=== PATIENT | female | born 1960 | race Two or more races ===

== ENCOUNTER 2019-06-28 14:50 | Emergency (ER) | payer OTHER ==
[~2019-06-28] VITALS: Ht 154.9 cm; Wt 74.8 kg
== END 2019-06-28 19:30 | disposition left against medical advice (07) ==
LOC: ER 14:50
DX: Z53.21 Procedure and treatment not carried out due to patient leaving prior to being seen by health care provider (principal)
CPT/HCPCS: 71046; 99284-25

== ENCOUNTER 2020-12-08 12:27 | Inpatient (IN) | payer BC ==
[~2020-12-08] VITALS: Ht 160 cm; Wt 83.7 kg
[~2020-12-08 12:27] MED LIST: BENZ100A PO
[2020-12-08 14:15] LABS: BASOPHILS ABSOLUTE AUTO 0.02 K/mm3 (0.00-0.23); BASOPHILS PERCENT AUTO 0 % (0-2); EOSINOPHILS ABSOLUTE AUTO 0.04 K/mm3 (0.00-0.68); EOSINOPHILS PERCENT AUTO 1 % (0-6); Hematocrit 44.5 % (33.0-51.0); Hemoglobin 14.5 g/dL (11.5-16.0); IMMATURE GRAN ABSOLUTE AUTO 0.03 K/mm3 (0.00-0.10); IMMATURE GRAN PERCENT AUTO 0 % (0-1); LYMPHOCYTES ABSOLUTE AUTO 0.67 K/mm3 (0.84-5.20); LYMPHOCYTES PERCENT AUTO 9 % (21-46); MONOCYTES PERCENT AUTO 3 % (4-13); Mean Corpuscular HGB Conc 32.6 g/dL (31.5-36.5); Mean Corpuscular Volume 86 fL (80-100); Mean Platelet Volume 9.8 fL (9.1-12.4); NEUTROPHILS ABSOLUTE AUTO 6.37 K/mm3 (1.96-9.15); NEUTROPHILS PERCENT AUTO 87 % (41-73); Platelet Count 327 K/mm3 (150-400); RDW Coefficient Variation 12.6 % (11.7-14.2); RDW Standard Deviation 39.8 fL (35.1-46.3); Red Blood Cell Count 5.18 M/mm3 (3.80-5.20); White Blood Cell Count 7.33 K/mm3 (4.00-11.30)
[2020-12-08 14:50] LABS: Alanine Aminotransfer (ALT/SGP 34 U/L (12-78); Albumin, Blood 2.8 g/dL (3.4-5.0); Albumin/Globulin Ratio 0.5 (0.8-1.8); Alk Phos 61 U/L (50-136); Anion Gap 6 mmol/L (6-16); Aspartate Aminotrans (AST/SGOT 46 U/L (12-37); Bilirubin, Total 0.5 mg/dL (0.1-1.0); Blood Urea Nitrogen 19 mg/dL (8-24); Bun/Creatinine Ratio 26.8 (12.0-20.0); CO2, Blood 27 mmol/L (21-32); Calcium, Blood 8.7 mg/dL (8.5-10.1); Chloride, Blood 100 mmol/L (98-108); Creatinine, Blood 0.71 mg/dL (0.40-1.00); Globulin, Blood 5.1 g/dL (2.2-4.0); Glomerular Filtration Rate >60 (60-); Glucose, Blood 113 mg/dL (70-99); Sodium, Blood 133 mmol/L (136-145); Total Protein, Blood 7.9 g/dL (6.4-8.2)
[2020-12-08] MEDS ORDERED: ALBU2.5V5 NEB (16:28)
[2020-12-08] MEDS ORDERED: AZIT250 PO (16:29)
[2020-12-08] MEDS ORDERED: CEFDINIR300 M4 PO (16:29)
--- NOTE | 2020-12-08 18:06 | NUR ---
SUMMARY PT ADMITTED FROM THE ER, PT ABLE TO STAND AND TRANSFER FROM THE GURNEY TO THE BED WITH MIN ASSIST, ORIENTED PT TO THE ROOM AND CALL SYSTEM, NO COMPLAINTS, WILL CONTINUE TO MONITOR
--- NOTE | 2020-12-09 04:47 | NUR ---
SHIFT SUMMARY: LS VERY COURSE T/O MOIST COUGH, NON-PRODUCTIVE. SOB WITH EXERTION. HACKING COUGH AT TIMES. WEAK, BUT ABLE TO GET UP TO BSC, BUT IT WEARS HER OUT AFTER DOING SO. DENIES ANY PAIN. VS ARE STABLE, MILD FEVERS. CHILLS. TASTE IS NORMAL. NO BM TONIGHT. VOIDING WELL. FAIR APPETITE. SATS GOOD ON 2 LITERS. HAS BEEN SLEEPING ENTIRE SHIFT EXCEPT TO USE THE BATHROOM. WILL CONTINUE TO MONITOR. CALL LIGHT IN REACH.
[2020-12-09 06:06] LABS: BASOPHILS ABSOLUTE AUTO 0.01 K/mm3 (0.00-0.23); BASOPHILS PERCENT AUTO 0 % (0-2); EOSINOPHILS ABSOLUTE AUTO 0.03 K/mm3 (0.00-0.68); EOSINOPHILS PERCENT AUTO 1 % (0-6); Hematocrit 39.6 % (33.0-51.0); Mean Corpuscular HGB 28.1 pg (26.0-34.0); Mean Corpuscular HGB Conc 32.8 g/dL (31.5-36.5); Mean Corpuscular Volume 86 fL (80-100); Mean Platelet Volume 9.7 fL (9.1-12.4); Platelet Count 326 K/mm3 (150-400); RDW Coefficient Variation 12.6 % (11.7-14.2); RDW Standard Deviation 38.8 fL (35.1-46.3); Red Blood Cell Count 4.63 M/mm3 (3.80-5.20); White Blood Cell Count 5.61 K/mm3 (4.00-11.30)
[2020-12-09 06:25] LABS: Alanine Aminotransfer (ALT/SGP 26 U/L (12-78); Albumin, Blood 2.3 g/dL (3.4-5.0); Albumin/Globulin Ratio 0.5 (0.8-1.8); Alk Phos 51 U/L (50-136); Anion Gap 7 mmol/L (6-16); Aspartate Aminotrans (AST/SGOT 40 U/L (12-37); Bilirubin, Total 0.4 mg/dL (0.1-1.0); Blood Urea Nitrogen 14 mg/dL (8-24); Bun/Creatinine Ratio 22.7 (12.0-20.0); CO2, Blood 25 mmol/L (21-32); Chloride, Blood 103 mmol/L (98-108); Creatinine, Blood 0.62 mg/dL (0.40-1.00); Globulin, Blood 4.3 g/dL (2.2-4.0); Glomerular Filtration Rate >60 (60-); Glucose, Blood 103 mg/dL (70-99); Potassium, Blood 3.8 mmol/L (3.5-5.5); Sodium, Blood 135 mmol/L (136-145); Total Protein, Blood 6.6 g/dL (6.4-8.2)
[2020-12-09 06:34] LABS: IMMATURE GRAN ABSOLUTE AUTO 0.03 K/mm3 (0.00-0.10); IMMATURE GRAN PERCENT AUTO 1 % (0-1); LYMPHOCYTES ABSOLUTE AUTO 0.58 K/mm3 (0.84-5.20); LYMPHOCYTES PERCENT AUTO 10 % (21-46); MONOCYTES ABSOLUTE AUTO 0.21 K/mm3 (0.16-1.47); MONOCYTES PERCENT AUTO 4 % (4-13); NEUTROPHILS ABSOLUTE AUTO 4.75 K/mm3 (1.96-9.15); NEUTROPHILS PERCENT AUTO 85 % (41-73)
--- NOTE | 2020-12-09 18:31 | NUR ---
SHIFT... PT REMAINS ALERT AND ORIENTED X4 AND IND IN ROOM. ON 3L O2 VIA NC AND SAT 90 AND ABOVE. PT MAKES NO C/O SOB AT THIS TIME. MILD NONPRODUCTIVE COUGH. STAFF WILL CONT TO MONITOR.
--- NOTE | 2020-12-10 05:19 | NUR ---
SHIFT SUMMARY: AOX3, INDEPENDENT TO BSC. LS CRACKLES T/O, COUGH MOIST AND SECREATIONS AREE MOVING MORE BUT NOT COMING ALL THE WAY UP. SOB WITH EXERTION, ATTEMPTING TO LAY ON BELLY TO HELP WITH LUNG EXPANSION. SATS>90% ON 3 LITERS OF O2. NO PAIN, LITTLE MORE OF A APPETITE SHE STATED. VS WNL, AFEBRILE. STILL WEAK BUT STAYING ABOUT THE SAME. CALL LIGHT IN REACH.
[2020-12-10 05:35] LABS: Albumin, Blood 2.3 g/dL (3.4-5.0); Anion Gap 6 mmol/L (6-16); Blood Urea Nitrogen 19 mg/dL (8-24); CO2, Blood 28 mmol/L (21-32); Calcium, Blood 8.3 mg/dL (8.5-10.1); Chloride, Blood 104 mmol/L (98-108); Creatinine, Blood 0.68 mg/dL (0.40-1.00); Glomerular Filtration Rate >60 (60-); Glucose, Blood 148 mg/dL (70-99); Potassium, Blood 3.7 mmol/L (3.5-5.5); Sodium, Blood 138 mmol/L (136-145)
--- NOTE | 2020-12-10 18:23 | NUR ---
SHIFT SUMMARY NO ACUTE EVENTS THIS SHIFT, VSS. PT IS ALERT AND ORIENTED, COOPERATIVE WITH CARE AND CALLS APPROPRIATELY. PT ABLE TO USE BEDSIDE COMMODE INDEPENDENTLY, PT NOTED TO BE SELF-PRONING THROUGHOUT SHIFT. PT'S O2 SATURATION ON 5 L VIA NASAL CANNULA WAS SUSTAINING 86-87% AT START OF SHIFT, THIS RN TITRATED O2 UP TO 7 L AT THAT TIME TO MAINTAIN O2 SATURATION OF 91-92% . RECHECKED O2 READING AT NOON, O2 SATURATION IN LOW TO MID 90S, TURNED O2 DOWN TO 6 L VIA NASAL CANNULA. PT DENIED PAIN THIS SHIFT.
[2020-12-11 05:27] LABS: Hematocrit 41.4 % (33.0-51.0); Hemoglobin 13.5 g/dL (11.5-16.0); Mean Corpuscular HGB 28.2 pg (26.0-34.0); Mean Corpuscular HGB Conc 32.6 g/dL (31.5-36.5); Mean Corpuscular Volume 87 fL (80-100); Mean Platelet Volume 9.9 fL (9.1-12.4); Platelet Count 433 K/mm3 (150-400); RDW Coefficient Variation 12.4 % (11.7-14.2); RDW Standard Deviation 38.9 fL (35.1-46.3); Red Blood Cell Count 4.78 M/mm3 (3.80-5.20); White Blood Cell Count 11.81 K/mm3 (4.00-11.30)
--- NOTE | 2020-12-11 05:53 | NUR ---
SHIFT SUMMARY: MAINTAINED OXYGEN NEEDS AT 6-7 LITERS BUT SWITCHED HER TO OXIMIZER. DESATS WITH EXERTION TO LOW 80'S DESPITE O2. LUNG SOUNDS CRACKLES MOSTLY IN THE BASES BUT IMPROVED FROM YETERDAY. STATES SHE FEELS LIKE SHE CAN BREATH BETTER LONG SHE DOES NOT MOVE. AFTER EXERTION SHE DOES TAKE LONGER TO RECOVER, THIS LAST TIME ALMOST 5 MINUTES. IS GOOD AT LAYING IN THE PRONE POSITION. DECREASE IN APPETITE, DRINKS PLENTY OF WATER. NO PAIN. SLEPT WELL T/O THE NIGHT. CALL LIGHT IS IN REACH.
[2020-12-11 06:01] LABS: Alanine Aminotransfer (ALT/SGP 23 U/L (12-78); Albumin, Blood 2.2 g/dL (3.4-5.0); Albumin/Globulin Ratio 0.5 (0.8-1.8); Alk Phos 46 U/L (50-136); Anion Gap 6 mmol/L (6-16); Aspartate Aminotrans (AST/SGOT 32 U/L (12-37); Bilirubin, Total 0.4 mg/dL (0.1-1.0); Blood Urea Nitrogen 19 mg/dL (8-24); Bun/Creatinine Ratio 31.4 (12.0-20.0); CO2, Blood 26 mmol/L (21-32); Calcium, Blood 7.9 mg/dL (8.5-10.1); Chloride, Blood 106 mmol/L (98-108); Creatinine, Blood 0.61 mg/dL (0.40-1.00); Globulin, Blood 4.3 g/dL (2.2-4.0); Glomerular Filtration Rate >60 (60-); Glucose, Blood 144 mg/dL (70-99); Potassium, Blood 3.7 mmol/L (3.5-5.5); Sodium, Blood 138 mmol/L (136-145); Total Protein, Blood 6.5 g/dL (6.4-8.2)
--- NOTE | 2020-12-11 16:59 | NUR ---
SUMMARY PT RESTING QUIETLY IN BED, WAKES EASILY, HAS BEEN PLEASANT AND COOPERATIVE WITH CARE, PT UP INDEPENDENTLY TO THE COMMODE, DYSPNEA WITH ACTIVITY, RECOVERS SLOWLY, PT PRONING SELF INDEPENDENTLY, O2 DECREASED TO 5L OXIMYZER, PT REPORTS SHE FEELS SHE CAN BREATH DEEPLY EASIER, NO COMPLAINTS, VSS, WILL CONT TO MONITOR
--- NOTE | 2020-12-12 19:41 | NUR ---
SUMMARY- PT A/O X4, STEADY ON FEET, GETS UP INDEPENDANT TO BED SIDE COMMODE. SATS 95% 6L OXIMIZER BEGINNING OF SHIFT. DASATS TO 80% WITH ACTIVITY AND BECOMES DYSPINC. RECOVERS APPROX 5 MINUTES, TURN UP O2 TEMP TO RECOVER. PT TOLERATING FOOD AND FLUID. WAS ABLE TO NAP ON/OFF TODAY, FEELING FATIQUED FROM ILLNESS AND LITTLE SLEEP. PT HAS DRY COUGH. CONT PULSE OX.
--- NOTE | 2020-12-12 23:11 | NUR ---
2038 PT LYING IN BED, REPORTS SOB W/EXERTION, ON 6.5 L VIA OXIMIZER AT 94%. NO OTHER APPARENT SIGNS OF DISTRESS. CALL LIGHT IS IN REACH.
--- NOTE | 2020-12-13 00:55 | NUR ---
0000 PT LYING IN BED, EYES CLOSED, APPEARS TO BE RESTING. WAKES EASILY TO VERBAL STIMUL. DENIES NEED FOR ANYTHING AT THIS TIME. CALL LIGHT IS IN REACH. NO APPARENT SIGNS OF DISTRESS.
--- NOTE | 2020-12-13 02:46 | NUR ---
0230 PT LYING IN BED, EYES CLOSED, APPEARS TO BE RESTING. BREATHING IS EVEN, UNLABORED. NO APPARENT SIGNS OF DISTRESS. CALL LIGHT IS IN REACH.
--- NOTE | 2020-12-13 04:04 | NUR ---
PT LYING IN BED. EYES CLOSED, APPEARS TO BE RESTING. BREATHING IS EVEN, UNLABORED. NO APPARENT SIGNS OF DISTRESS. CALL LIGHT IS IN REACH.
--- NOTE | 2020-12-13 04:04 | NUR ---
PT IS AAO X 4, ON 6L VIA OXIMIZER AT 94%. REPORTS SOB W/EXERTION.
--- NOTE | 2020-12-13 05:43 | NUR ---
PT LYING IN BED, EYES CLOSED, APPEARS TO BE RESTING. BREATHING IS EVEN, UNLABORED. NO APPARENT SIGNS OF DISTRESS. CALL LIGHT IS IN REACH. NO OTHER CHANGES THIS SHIFT.
--- NOTE | 2020-12-13 15:59 | NUR ---
SUMMARY- PT A/O X4, INDEPENDANT IN ROOM TO BEDSIDE COMMODE. LUNG SOUNDS WITH CRACKLES IN THE BASES. DYSPNIC WITH EXERTION, CONT PULSE OX, STARTED DAY ON 6L SATTING MID 90'S, DOWN TO 5L AT 1430, 92-95% AT REST, WITH ACTIVITY DESATS TO 82-84% AND RECOVERS OVER ABOUT 5 MINUTES. FREQ STRONG COUGH, MIN PRODUCTION. COUGH MED THIS AM HELPFUL, PT WANTS AGAIN BEFORE BEDTIME. TAKING IN LG AMOUNTS OF HOT TEA AND A GOOD WATER DRINKER. TOLERATING A GEN DIET. STATES SHE FEELS BETTER TODAY AND HAS BETTER ENERGY.
--- NOTE | 2020-12-13 21:27 | NUR ---
2009 PT LYING IN BED, REPORTS SOB WITH EXERTION, ON 4.5L VIA OXIMIZER AT 96% NO OTHER APPARENT SIGNS OF DISTRESS. CALL LIGHT IS IN REACH.
--- NOTE | 2020-12-13 23:06 | NUR ---
PT LYING IN BED, EYES CLOSED, APPEARS TO BE RESTING. BREATHING IS EVEN, UNLABORED. NO APPARENT SIGNS OF DISTRESS. CALL LIGHT IS IN REACH.
--- NOTE | 2020-12-14 00:10 | NUR ---
PT LYING IN BED, EYES CLOSED, APPEARS TO BE RESTING. BREATHING IS EVEN, UNLABORED. NO APPARENT SIGNS OF DISTRESS. CALL LIGHT IS IN REACH.
--- NOTE | 2020-12-14 01:45 | NUR ---
PT LYING IN BED, EYES CLOSED, APPEARS TO BE RESTING. BREATHING IS EVEN, UNLABORED. NO APPARENT SIGNS OF DISTRESS. CALL LIGHT IS IN REACH.
--- NOTE | 2020-12-14 03:22 | NUR ---
PT LYING IN BED, EYES CLOSED, APPEARS TO BE RESTING. WAKES EASILY TO VERBAL STIMULI. NO APPARENT SIGNS OF DISTRESS. CALL LIGHT IS IN REACH.
--- NOTE | 2020-12-14 03:23 | NUR ---
PT IS AAO X 4, SOB WITH EXERTION, ON 4.5L OXIMIZER AT 96%.
--- NOTE | 2020-12-14 19:40 | NUR ---
a+o, medicated as prescribed, 2L via nc, call light in reach, able to make needs known, looking forward to going home tomorrow, worked on getting ox as low as possible, report shared with noc nurse
--- NOTE | 2020-12-15 04:43 | NUR ---
MOTION PICTURE PHOTOGRAPHER SUMMARY NO ACUTE CHANGES THIS SHIFT. PT AAOX4 AND INDEPENDENT IN ROOM. ON 2L O2 VIA NC. MAINTAINS O2 SATS >90% AT REST, DESATS TO MID 80'S WHEN GETTING UP IN ROOM. VSS, WILL CONTINUE TO MONITOR.
--- NOTE | 2020-12-15 11:53 | NUR ---
Spiritual care visit conducted. I provided companionship and prayer. Patient was evidently appreciative and was eagerly awaiting being discharged. We had a nice time as this was my second visit with her and we enjoyed going further on getting to know each other.
[2020-12-15] MEDS ORDERED: ACET325 (15:09)
[2020-12-15] MEDS ORDERED: DEXA6 PO (15:10)
[2020-12-15] MEDS ORDERED: ALBU90OI INH (15:13)
[2020-12-15] MEDS ORDERED: GUAI600T33 PO (15:13)
--- NOTE | 2020-12-15 18:39 | NUR ---
PT DISCHARGED WITH FRIEND TO TRANSPORT. PT HAS HOME O2 FROM [facility] AND WAS ON 5l TO GO HOME. PT INDEPENDENT IN ROOM AND WOULD GET SHORT OF BREATH WITH AMBULATION. PT INSTRUCTED TO TAKE IT EASY AT HOME AND NOT PUSH TO HARD. PT HAD EXTRA EDUCATIONA PRIOR TO DISCHARGE ON MEDS AND MEDICATION FAXED TO PHARMACY. PT COLLECTED ALL PERSONAL BELONGINGS AND WAS ESCORTED OUT VIA WHEELCHAIR. NO DISTRESS NOTED.
== END 2020-12-15 18:25 | disposition home or self-care (01) | DRG 177 ==
LOC: ER 12:27 → MEDS 15:11
PROVIDERS: Internal Medicine; Nurse Practitioner Acute Care; Physician Assistant; ADMIT Internal Medicine
PROC: XW033E5 Introduction of Remdesivir Anti-infective into Peripheral Vein, Percutaneous Approach, New Technology Group 5 (ICD-10-PCS; principal; 2020-12-08)
PROC: 8E0ZXY6 Isolation (ICD-10-PCS; 2020-12-08)
PROC: 3E0D73Z Introduction of Anti-inflammatory into Mouth and Pharynx, Via Natural or Artificial Opening (ICD-10-PCS; 2020-12-09)
DX: U07.1 COVID-19 (principal); J96.01 Acute respiratory failure with hypoxia; J12.82 Pneumonia due to coronavirus disease 2019; E87.1 Hypo-osmolality and hyponatremia; E66.01 Morbid (severe) obesity due to excess calories; I95.9 Hypotension, unspecified; R74.01 Elevation of levels of liver transaminase levels; M19.90 Unspecified osteoarthritis, unspecified site; D72.829 Elevated white blood cell count, unspecified; T38.0X5A Adverse effect of glucocorticoids and synthetic analogues, initial encounter; Z66 Do not resuscitate; Z68.32 Body mass index [BMI] 32.0-32.9, adult
CPT/HCPCS: 36415; 71045; 80053; 80069; 84145; 85025; 85027; 86140; 93005; 93010; 94761; 94762; 96365; 96372-59; 97110; 97161; 97165; 97535; 99285-25; A9270; J1650; J7030; J7050